=== PATIENT | female | born 1980 | race Caucasian/White ===

== ENCOUNTER 2018-01-30 09:33 | Emergency (ER) | payer BC ==
[2018-01-30 09:34] VITALS: BMI 23.3
[2018-01-30 09:55] VITALS: RESP 18; TEMP 98.5; O2SAT 98
[2018-01-30] MEDS ORDERED: Sodium Chloride 0.9% 1,000 ML IV STA (10:11)
--- NOTE | 2018-01-30 10:12 | ED PDOC ---
Arrival/HPI - General Chief Complaint: GI Problem Time Seen by Provider: 01/30/18 10:03 Historian: Patient - History of Present Illness Narrative History of Present Illness (Text): 01/30/18 10:05 37 y/o female, pmh including cholelithiasis/migraine, allergic to sulfa, c/o lower abdominal pain with diarrhea started last night. Pt. stated that she has lower abdominal pain started last night, went to the bathroom to have 2 bowel movement which both is bright red stool with watery diarrhea that coated the toilet bowl water, stated that she has no nausea or vomiting, no recent traveling, no recent bbq or undercooked food been ingested for the past 2 weeks , no palpitation, no chest pain or shortness of breath, no other medical or psychological complaints. Past Medical History - Provider Review Nursing Documentation Reviewed: Yes - Infectious Disease Hx of Infectious Diseases: None - Reproductive Menopause: No - Cardiac Hx Cardiac Disorders: No - Neurological Hx Migraine: Yes - Renal Hx Renal Disorder: No - Endocrine/Metabolic Hx Endocrine Disorders: No - Integumentary Hx Dermatological Disorder: No - Psychiatric Hx Depression: No Hx Emotional Abuse: No Hx Physical Abuse: No Hx Substance Use: No - Surgical History Hx Abdominal Aortic Aneurysm Repair: No - Anesthesia Hx Anesthesia: No - Suicidal Assessment Feels Threatened In Home Enviroment: No Family/Social History - Physician Review Nursing Documentation Reviewed: Yes Family/Social History: Unknown Family HX Smoking Status: Never Smoked Hx Alcohol Use: No Hx Substance Use: No Hx Substance Use Treatment: No Allergies/Home Meds Allergies/Adverse Reactions: Allergies Sulfa (Sulfonamide Antibiotics) Allergy (Verified 01/30/18 09:54) ANAPHYLAXIS Home Medications: Home Meds Medication Instructions Recorded Confirmed Topiramate [Topamax] 25 mg PO DAILY 01/30/18 01/30/18 Review of Systems - Review of Systems Constitutional: absent: Fatigue, Fevers Eyes: absent: Vision Changes ENT: absent: Hearing Changes Respiratory: absent: SOB, Cough Cardiovascular: absent: Chest Pain Gastrointestinal: Abdominal Pain, Diarrhea, Hematochezia. absent: Nausea, Vomiting Genitourinary Female: absent: Dysuria, Frequency Musculoskeletal: absent: Arthralgias, Back Pain Skin: absent: Rash, Pruritis, Skin Lesions Neurological: absent: Headache, Dizziness Psychiatric: absent: Anxiety, Depression Physical Exam Vital Signs Reviewed: Yes Vital Signs Temp Pulse Resp BP Pulse Ox 01/30/18 13:50 78 18 124/78 98 01/30/18 12:44 69 18 131/74 98 01/30/18 09:51 98.5 F 76 18 132/88 98 Temperature: Afebrile Blood Pressure: Normal Pulse: Regular Respiratory Rate: Normal Appearance: Positive for: Well-Appearing, Non-Toxic, Comfortable Pain Distress: Mild Mental Status: Positive for: Alert and Oriented X 3 - Systems Exam Head: Present: Atraumatic, Normocephalic Pupils: Present: PERRL Extroacular Muscles: Present: EOMI Conjunctiva: Present: Normal Mouth: Present: Moist Mucous Membranes Neck: Present: Normal Range of Motion Respiratory/Chest: Present: Clear to Auscultation, Good Air Exchange. No: Respiratory Distress, Accessory Muscle Use Cardiovascular: Present: Regular Rate and Rhythm, Normal S1, S2. No: Murmurs Abdomen: Present: Tenderness (+periumbilical ). 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 No: Rectal Tenderness, Melena, Fissures, Nodule /Mass/Lesions Back: Present: Normal Inspection Upper Extremity: Present: Normal Inspection. No: Cyanosis, Edema Lower Extremity: Present: Normal Inspection. No: Edema Neurological: Present: GCS=15, CN II-XII Intact, Speech Normal Skin: Present: Warm, Dry, Normal Color. No: Rashes Psychiatric: Present: Alert, Oriented x 3, Normal Insight, Normal Concentration Medical Decision Making ED Course and Treatment: 01/30/18 10:16 -labs/ua/type and screen -Stool culture and c.diff/toxin -CT abdomen and pelvis -IVF/pepcid -Observe and reassess 01/30/18 13:27 -Guaiac is positive. -Labs show no acute findings with hgb 12.5 -UA show +UTI -CT abdomen and pelvis show No acute findings -I offered admission as she should get colonoscopy and further cbc trending/ stool test follow up but she said she feels asymptomatic now, no diarrhea or abdominal pain, no GI bleeding now, request to be discharged home as she has kids at home, risks and benefits explained. AMA AMA ER The patient refuses to stay in the Emergency Room (ER) to continue the care and wishes to leave the emergency department against my medical advice. Patient was told that staying in the ER is necessary and a full explanation of the reasons why was given, and understood by the patient with alert and oriented x4. The risk of leaving were explained in laymans term and including but not limited to Gastrointestinal bleeding, anemia, syncope, organ failure, ischemia, infectious process, pain, worsening of condition, permanent disability and from an undiagnosed or untreated condition. The patient accepts these risks, and is in my judgment is competent and capable of understanding the clinical situation and explanation of the risk of leaving. The patient is able to verbally repeated me back the above explained risks and benefits back to me, and verbally expressed understanding. Patient was given the opportunity to ask questions and change mind. The patient was instructed regarding the best care for the present symptoms, and to follow up as soon as possible with the primary care doctor including specialist or return to the emergency department at any time for continuing care. You sign out against medical advice. You are given emelyn calderón, advised to admit to the hospital for further testing and treatment, follow up with your own pmd and GI as soon as possible, return to the ER for any new or worsening signs or symptoms. - Lab Interpretations Microbiology Results: Microbiology Results 01/30/18 22:03 Urine,Clean Catch Urine Culture - Final No Growth (<1,000 CFU/ML) Lab Results: 01/30/18 10:30 01/30/18 10:30 Lab Results 01/30/18 10:30: Urine Color Yellow, Urine Appearance Clear, Urine pH 6.5, Ur Specific [place] 1.015, Urine Protein Negative, Urine Glucose (UA) Negative, Urine Ketones Negative, Urine Blood Trace-intact H, Urine Nitrate Negative, Urine Bilirubin Negative, Urine Urobilinogen 0.2, Ur Leukocyte Esterase Trace H , Urine RBC 1 - 3, Urine WBC 2 - 5, Ur Epithelial Cells 4 - 5, Urine Bacteria Mod 01/30/18 10:30: Blood Type O POSITIVE, Antibody Screen Negative, BBK History Checked No verified bt 01/30/18 10:30: WBC 6.3, RBC 6.65 H, Hgb 12.5, Hct 38.3, MCV 57.6 L, MCH 18.8 L , MCHC 32.6, RDW 16.3 H, Plt Count 243, Gran % 52.2, Lymph % (Auto) 34.8, [place] % (Auto) 9.5 H, Eos % (Auto) 3.0, Baso % (Auto) 0.5, Gran # 3.31, Lymph # (Auto ) 2.2, [place] # (Auto) 0.6, Eos # (Auto) 0.2, Baso # (Auto) 0.03 01/30/18 10:30: Sodium 144, Potassium 4.0, Chloride 107, Carbon Dioxide 25, Anion Gap 16, BUN 10, Creatinine 0.8, Est GFR ( Amer) > 60, Est GFR (Non- Af Amer) > 60, Random Glucose 94, Calcium 9.5, Total Bilirubin 0.7, AST 26, ALT 28, Alkaline Phosphatase 52, Total Protein 7.9, Albumin 4.6, Globulin 3.3, Albumin/Globulin Ratio 1.4, Lipase 83 I have reviewed the lab results: Yes - RAD Interpretation Radiology Orders: 01/30/18 10:11 ABD & PELVIS IV CONTRAST ONLY [CT] Stat FINDINGS: LOWER THORAX: Unremarkable. LIVER: Unremarkable. No gross lesion or ductal dilatation. GALLBLADDER AND BILE DUCTS: Unremarkable. PANCREAS: Unremarkable. No gross lesion or ductal dilatation. SPLEEN: Unremarkable. ADRENALS: Unremarkable. No mass. KIDNEYS AND URETERS: Unremarkable. No hydronephrosis. No solid mass. VASCULATURE: Unremarkable. No aortic aneurysm. BOWEL: Unremarkable. No obstruction. No gross mural thickening. APPENDIX: Normal appendix. PERITONEUM: Unremarkable. No free fluid. No free air. LYMPH NODES: Unremarkable. No enlarged lymph nodes. BLADDER: Unremarkable. REPRODUCTIVE: Unremarkable. BONES: No acute fracture. OTHER FINDINGS: None. IMPRESSION: No acute findings Director Of Social Work: Radiologist - Medication Orders Current Medication Orders: Discontinued Medications Famotidine (Pepcid) 20 mg IVP STAT STA Stop: 01/30/18 10:12 Last Admin: 01/30/18 11:11 Dose: 20 mg IVP Administration Document 01/30/18 11:11 GMD (Rec: 01/30/18 11:11 GMD [id number]) Charges for Administration # of IVP Administrations 1 Sodium Chloride (Sodium Chloride 0.9%) 1,000 mls @ 999 mls/hr IV .Q1H1M STA Stop: 01/30/18 11:11 Last Admin: 01/30/18 11:11 Dose: 999 mls/hr eMAR Start Stop Document 01/30/18 11:11 GMD (Rec: 01/30/18 11:11 GMD [id number]) Intravenous Solution Start Date 01/30/18 Start Time 11:11 End Date 01/30/18 End time 12:12 Total Infusion Time 61 - PA / IN SHOP SERVICE TECHNICIAN / Resident Statement MD/DO has reviewed & agrees with the documentation as recorded. Disposition/Present on Arrival - Present on Arrival Any Indicators Present on Arrival: No History of DVT/PE: No History of Uncontrolled Diabetes: No Urinary Catheter: No History of Decub. Ulcer: No History Surgical Site Infection Following: None - Disposition Have Diagnosis and Disposition been Completed?: Yes Diagnosis: Bloody diarrhea, UTI (urinary tract infection) Disposition: AGAINST MEDICAL ADVICE Disposition Time: 13:37 Condition: IMPROVED Additional Instructions: You sign out against medical advice. You are given prilosec, zofran, macrobid advised to admit to the hospital for further testing and treatment, follow up with your own pmd and GI/Urologist as soon as possible, return to the ER for any new or worsening signs or symptoms. Prescriptions: Nitrofurantoin Macrocrystals [Macrobid] 100 mg PO BID #14 cap Omeprazole Magnesium [Prilosec Otc] 20 mg PO DAILY #14 tcp Ondansetron [Zofran] 4 mg PO Q8H PRN #12 tab PRN Reason: Other Referrals: Vargas Hay MD [Medical Doctor] - Follow up with primary Philip Kwan MD [Staff Provider] - Follow up with primary Shelli Cisse MD [Family Provider] - Follow up with primary Forms: WORK NOTE
[2018-01-30 10:49] LABS: PH,URINE 6.5 (4.7-8.0); URINE BILIRUBIN NEGATIVE (NEGATIVE); URINE BLOOD TRACE-INTACT (NEGATIVE); URINE GLUCOSE (UA) NEGATIVE (NEGATIVE); URINE LEUKOCYTE ESTERASE TRACE Leu/uL (NEGATIVE); URINE PROTEIN NEGATIVE mg/dL (<30 mg/dL); URINE UROBILINOGEN 0.2 E.U./dL (<1 E.U./dL)
[2018-01-30 10:55] LABS: URINE APPEARANCE CLEAR (CLEAR); URINE COLOR YELLOW (YELLOW)
[2018-01-30 10:57] LABS: BASO # 0.03 K/mm3 (0.0-2.0); BASO % 0.5 % (0.0-3.0); EOS # 0.2 (0.0-0.7); GRAN # 3.31 (1.4-6.5); GRAN % 52.2 % (50.0-68.0); HEMOGLOBIN 12.5 g/dL (12.0-16.0); LYMPH # 2.2 (1.2-3.4); LYMPH % 34.8 % (22.0-35.0); MEAN CELL VOLUME 57.6 fl (80.0-105.0); MEAN CORPUSCULAR HEMOGLOBIN 18.8 pg (25.0-35.0); MEAN CORPUSCULAR HGB CONC 32.6 g/dl (31.0-37.0); MONO # 0.6 (0.1-0.6); MONO % 9.5 % (1.0-6.0); PLATELET COUNT 243 10^3/uL (120.0-450.0); RBC 6.65 10^6/uL (3.5-6.1); RED CELL DISTRIBUTION WIDTH 16.3 % (11.5-14.5); WHITE BLOOD COUNT 6.3 10^3/ul (4.5-11.0)
[2018-01-30 11:05] LABS: URINE BACTERIA MOD (NEG)
[2018-01-30] MEDS ORDERED: Iohexol 350 MG/100 ML VIAL ONE (11:19)
[2018-01-30 11:22] LABS: ALB/GLOB RATIO 1.4 (1.1-1.8); ALBUMIN 4.6 g/dL (3.0-4.8); ALT/SGPT 28 U/L (7-56); BLOOD UREA NITROGEN 10 mg/dL (7-21); CALCIUM 9.5 mg/dL (8.4-10.5); LIPASE 83 U/L (23-300)
[2018-01-30 11:38] LABS: AST/SGOT 26 U/L (14-36); GFR AFRICAN-AMERICAN > 60; GFR NON-AFRICAN AMERICAN > 60
--- NOTE | 2018-01-30 12:32 | CT ---
PROCEDURE: CT Abdomen and Pelvis with contrast HISTORY: lower abdominal pain and diarrhea (bloody?) COMPARISON: None. TECHNIQUE: Contrast dose: 100 cc of Omni 350 Radiation dose: Total exam DLP = 453 mGy-cm. This CT exam was performed using one or more of the following dose reduction techniques: Automated exposure control, adjustment of the mA and/or kV according to patient size, and/or use of iterative reconstruction technique. FINDINGS: LOWER THORAX: Unremarkable. LIVER: Unremarkable. No gross lesion or ductal dilatation. GALLBLADDER AND BILE DUCTS: Unremarkable. PANCREAS: Unremarkable. No gross lesion or ductal dilatation. SPLEEN: Unremarkable. ADRENALS: Unremarkable. No mass. KIDNEYS AND URETERS: Unremarkable. No hydronephrosis. No solid mass. VASCULATURE: Unremarkable. No aortic aneurysm. BOWEL: Unremarkable. No obstruction. No gross mural thickening. APPENDIX: Normal appendix. PERITONEUM: Unremarkable. No free fluid. No free air. LYMPH NODES: Unremarkable. No enlarged lymph nodes. BLADDER: Unremarkable. REPRODUCTIVE: Unremarkable. BONES: No acute fracture. OTHER FINDINGS: None. IMPRESSION: No acute findings
[2018-01-30 13:50] VITALS: BP 124/78; PULSE 78
== END 2018-01-30 13:50 | disposition left against medical advice (07) ==
LOC: ED 09:33
DX: N39.0 Urinary tract infection, site not specified (principal); R19.7 Diarrhea, unspecified
CPT/HCPCS: 74177; 80053; 81001; 83690; 85025; 86850; 86900; 87086; 96361; 96374; 99285; J7040; Q9967